=== PATIENT | female | born 1990 | race Caucasian/White ===

== ENCOUNTER → 2021-07-13 | Outpatient (CLI) | payer OTHER | END | disposition home or self-care (01) | LOC: WCC 08:21 | DX: T24.231A Burn of second degree of right lower leg, initial encounter (principal); T21.24XA Burn of second degree of lower back, initial encounter; T25.221A Burn of second degree of right foot, initial encounter; T21.25XA Burn of second degree of buttock, initial encounter; X12.XXXA Contact with other hot fluids, initial encounter; I10 Essential (primary) hypertension; E66.01 Morbid (severe) obesity due to excess calories; F17.210 Nicotine dependence, cigarettes, uncomplicated; Z88.0 Allergy status to penicillin; Z79.899 Other long term (current) drug therapy; Z68.41 Body mass index [BMI] 40.0-44.9, adult ==

== ENCOUNTER → 2021-07-21 | Outpatient (CLI) | payer OTHER | LOC: WCC 08:42 | DX: T24.231A Burn of second degree of right lower leg, initial encounter (principal); T21.24XA Burn of second degree of lower back, initial encounter; T25.221A Burn of second degree of right foot, initial encounter; T21.25XA Burn of second degree of buttock, initial encounter; E66.01 Morbid (severe) obesity due to excess calories; I10 Essential (primary) hypertension; Z72.0 Tobacco use; Z88.0 Allergy status to penicillin; Z68.41 Body mass index [BMI] 40.0-44.9, adult; Z79.899 Other long term (current) drug therapy; X12.XXXA Contact with other hot fluids, initial encounter ==

== ENCOUNTER → 2021-07-28 | Outpatient (CLI) | payer OTHER | LOC: WCC 07:43 | DX: T24.231A Burn of second degree of right lower leg, initial encounter (principal); T21.24XA Burn of second degree of lower back, initial encounter; T21.25XA Burn of second degree of buttock, initial encounter; I10 Essential (primary) hypertension; Z72.0 Tobacco use; E66.01 Morbid (severe) obesity due to excess calories; Z68.41 Body mass index [BMI] 40.0-44.9, adult; Z88.0 Allergy status to penicillin; Z79.899 Other long term (current) drug therapy ==

== ENCOUNTER → 2021-08-03 | Outpatient (CLI) | payer OTHER | END | disposition home or self-care (01) | LOC: WCC 07:40 | DX: T24.201A Burn of second degree of unspecified site of right lower limb, except ankle and foot, initial encounter (principal); T25.221A Burn of second degree of right foot, initial encounter; T21.24XA Burn of second degree of lower back, initial encounter; X12.XXXA Contact with other hot fluids, initial encounter ==

== ENCOUNTER → 2021-08-11 | Outpatient (CLI) | payer OTHER | END | disposition home or self-care (01) | LOC: WCC 07:17 | DX: T24.201A Burn of second degree of unspecified site of right lower limb, except ankle and foot, initial encounter (principal); T25.221A Burn of second degree of right foot, initial encounter; I10 Essential (primary) hypertension; E66.01 Morbid (severe) obesity due to excess calories; F17.200 Nicotine dependence, unspecified, uncomplicated; Z68.41 Body mass index [BMI] 40.0-44.9, adult; Z79.899 Other long term (current) drug therapy ==

== ENCOUNTER → 2021-08-19 | Outpatient (CLI) | payer OTHER | LOC: WCC 07:37 | DX: T25.221A Burn of second degree of right foot, initial encounter (principal); I10 Essential (primary) hypertension; E66.01 Morbid (severe) obesity due to excess calories; T24.231D Burn of second degree of right lower leg, subsequent encounter; T21.24XD Burn of second degree of lower back, subsequent encounter; T31.0 Burns involving less than 10% of body surface; Z72.0 Tobacco use; X12.XXXA Contact with other hot fluids, initial encounter; Z88.0 Allergy status to penicillin ==

== ENCOUNTER → 2021-08-25 | Outpatient (CLI) | payer OTHER | END | disposition home or self-care (01) | LOC: WCC 06:57 | DX: T25.221A Burn of second degree of right foot, initial encounter (principal); I10 Essential (primary) hypertension; E66.01 Morbid (severe) obesity due to excess calories; F17.200 Nicotine dependence, unspecified, uncomplicated; Z79.899 Other long term (current) drug therapy; Z68.41 Body mass index [BMI] 40.0-44.9, adult | CPT/HCPCS: 87070; 87205 ==